=== PATIENT | male | born 1980 | race Caucasian/White ===

== ENCOUNTER → 2018-04-19 | Outpatient (CLI) | payer BC, OTHER ==
[2018-04-19 14:07] LABS: BASO # 0.1 10^3/uL (0.0-0.2); BASO % 0.8 % (0.0-1.0); EOS # 0.1 10^3/uL (0.0-0.50); EOS % 0.9 % (0.0-3.0); HEMATOCRIT 41.8 % (42.0-52.0); HEMOGLOBIN 14.3 g/dl (13.5-17.5); IMMATURE GRANULOCYTE % 0.3 % (0-3.0); LYMPH # 1.9 10^3/uL (1.5-4.5); LYMPH % 25.7 % (24.0-44.0); MEAN CORPUSCULAR HEMOGLOBIN 28.5 pg (27.0-33.0); MEAN CORPUSCULAR HGB CONC 34.2 g/dl (32.0-36.5); MEAN CORPUSCULAR VOLUME 83.4 fl (80.0-96.0); MONO # 0.6 10^3/uL (0.0-0.8); MONO % 8.4 % (0.0-5.0); NEUTROPHILS # 4.7 10^3/uL (1.8-7.7); NEUTROPHILS % 63.9 % (36.0-66.0); PLATELET COUNT, AUTOMATED 325 10^3/uL (150-450); RED BLOOD COUNT 5.01 10^6/uL (4.30-6.10); RED CELL DISTRIBUTION WIDTH 13.7 % (11.5-14.5); WHITE BLOOD COUNT 7.4 10^3/uL (4.0-10.0)
[2018-04-19 14:12] LABS: INR 0.98; PROTHROMBIN TIME 13.1 SECONDS (12.1-14.4)
[2018-04-19 14:13] LABS: PARTIAL THROMBOPLASTIN TIME 30.5 SECONDS (25.4-37.6)
[2018-04-19 14:48] LABS: ALBUMIN 3.9 GM/DL (3.2-5.2); ALBUMIN/GLOBULIN RATIO 0.98 (1.00-1.93); ALKALINE PHOSPHATASE 73 U/L (45-117); ALPHA FETOPROTEIN TUMOR QUANT < 1.3 NG/ML (<8.1); ALT/SGPT 34 U/L (12-78); ANION GAP 12 MEQ/L (8-16); AST/SGOT 18 U/L (7-37); BILIRUBIN,TOTAL 0.4 MG/DL (0.2-1.0); BLOOD UREA NITROGEN 15 MG/DL (7-18); CALCIUM LEVEL 9.5 MG/DL (8.5-10.1); CARBON DIOXIDE LEVEL 25 MEQ/L (21-32); CHLORIDE LEVEL 103 MEQ/L (98-107); CREATININE FOR GFR 0.97 MG/DL (0.70-1.30); GLOMERULAR FILTRATION RATE > 60.0 (>60); GLUCOSE, FASTING 91 MG/DL (70-100); POTASSIUM SERUM 4.1 MEQ/L (3.5-5.1); SODIUM LEVEL 140 MEQ/L (136-145); TOTAL PROTEIN 7.9 GM/DL (6.4-8.2)
[2018-04-19 15:05] LABS: ERYTHROCYTE SEDIMENTATION RATE 15 mm/hr (0-15)
[2018-04-22 00:07] LABS: QuantiFERON-TB Gold Plus Negative (Negative)
[2018-04-25 08:06] LABS: ANCA-ATYPICAL <1:20 titer (Neg:<1:20); ANTI DOUBLE STRAND-DNA AB 1 IU/mL (0-9); ANTINUCLEAR ANTIBODIES DIRECT Negative (Negative); ASPERGILLUS FLAVUS ABY Negative (Neg:<1:1); ASPERGILLUS FUMIGATUS ABY Negative (Neg:<1:1); ASPERGILLUS GALACTOMANNAN AG 0.03 Index (0.00-0.49); ASPERGILLUS NIGER ABY Negative (Neg:<1:1); BLASTOMYCES ANTIBODY LEVEL Negative (Neg:<1:1); COCCIDIOMYCOSIS ANTIBODY 1.2 IV (<=0.9); CRYPTOCOCCUS ANTIGEN SER Negative (Negative); CYTOPLASMIC NEUTROP AB ANCA-C <1:20 titer (Neg:<1:20); HCG SERUM TUMOR MARKER QUANT < 1 mIU/mL (0-3); PERINUCLEAR AB ANCA-P <1:20 titer (Neg:<1:20); RNP ANTIBODIES <0.2 AI (0.0-0.9); SJOGREN'S ANTI SS-A <0.2 AI (0.0-0.9); SJOGREN'S ANTI SS-B <0.2 AI (0.0-0.9); SMITH ANTIBODIES <0.2 AI (0.0-0.9)
== END ==
LOC: M SMT 09:57
DX: R91.8 Other nonspecific abnormal finding of lung field (principal)
CPT/HCPCS: 80053

== ENCOUNTER → 2018-04-23 | Outpatient (CLI) | payer BC, OTHER | LOC: M RAD 07:54 | DX: R91.8 Other nonspecific abnormal finding of lung field (principal); N20.0 Calculus of kidney | CPT/HCPCS: 71250 ==

== ENCOUNTER 2018-05-02 06:05 | Day surgery (SDC) | payer BC, OTHER ==
[~2018-05-02 06:05] MED LIST: LR 1,000 ML IV
[2018-05-02] MEDS ORDERED: dexameTHASONE 4 MG/ML 1ML VIAL (J1100) As Ordered ×2 (07:05→07:10)
[2018-05-02] MEDS ORDERED: LIDOCAINE 2% INJ 100 MG/5 ML SDV (FOR ANES.) As Ordered (07:05)
[2018-05-02] MEDS ORDERED: PROPOFOL 200 MG/20 ML VIAL As Ordered (07:05)
[2018-05-02] MEDS ORDERED: ROCURONIUM BROMIDE 50 MG/5 ML VIAL As Ordered (07:05)
[2018-05-02] MEDS ORDERED: ONDANSETRON 4MG/2ML VIAL (J2405) As Ordered (07:05)
[2018-05-02] MEDS ORDERED: MIDAZOLAM INJ 2 MG/2 ML VIAL (J2250) As Ordered (07:06)
[2018-05-02] MEDS ORDERED: fentaNYL 250 MCG/5 ML INJECTION (J3010) As Ordered (07:06)
[2018-05-02] MEDS: CETACAINE SPRAY 5GM As Ordered (07:43)
[2018-05-02] MEDS ORDERED: SUGAMMADEX SODIUM 500 MG/5 ML VIAL (BRIDION) As Ordered (07:57)
[2018-05-02] MEDS ORDERED: PHENYLephrine HCL 500 MCG/5 ML (100MCG/ML) SYRINGE (J2370) As Ordered (08:28)
[2018-05-02] MEDS ORDERED: ePHEDrine SULFATE 25 MG/5 ML(5MG/ML) SYRINGE As Ordered (08:40)
[2018-05-02] MEDS: LIDOCAINE VISCOUS 2% SOLN 15ML UDC As Ordered (09:17)
[2018-05-02] MEDS: EPINEPHrine 1MG/10ML SYRINGE 1.5IN As Ordered (09:17)
[2018-05-02] MEDS: THROMBIN SOLN 5,000 UNITS VIAL As Ordered (09:17)
[2018-05-02] MEDS: LIDOCAINE 1% MDV 20ML VIAL As Ordered (09:17)
[2018-05-02] MEDS ORDERED: LR 1,000 ML IV (09:45)
[2018-05-02] MEDS ORDERED: ONDANSETRON 4MG/2ML VIAL (J2405) IV (09:45)
[2018-05-02] MEDS ORDERED: fentaNYL 100 MCG/2 ML INJECTION (J3010) IV (09:45)
[2018-05-02] MEDS ORDERED: PERCOCET 5MG/325MG TAB As Ordered (10:53)
[2018-05-02] MEDS: PERCOCET 5MG/325MG TAB PO (10:55)
[2018-05-02 13:43] LABS: APPEARANCE HAZY (CLEAR); COLOR PINK (COLORLESS); SOURCE LEFT LOWER LOBE
[2018-05-02 13:44] LABS: BAL DIFF IF INDICATED? NO (NO); BAL WBC 14 CELLS/uL (0-10); DILUTION FACTOR 1; WBC BAL COUNTED 13
[2018-05-02 13:45] LABS: APPEARANCE HAZY (CLEAR); BAL DIFF IF INDICATED? NO (NO); BAL WBC 6 CELLS/uL (0-10); COLOR PINK (COLORLESS); DILUTION FACTOR 1; SOURCE LEFT UPPER LOBE; WBC BAL COUNTED 5
== END 2018-05-02 11:45 | disposition home or self-care (01) ==
LOC: M SDC 06:05
DX: R94.31 Abnormal electrocardiogram [ECG] [EKG] (principal); R59.0 Localized enlarged lymph nodes; I10 Essential (primary) hypertension; K21.9 Gastro-esophageal reflux disease without esophagitis
CPT/HCPCS: 31623

== ENCOUNTER → 2018-06-25 | Outpatient (CLI) | payer BC, OTHER ==
[~2018-06-25] MED LIST changes: +BYST5TAB2 PO; +DUPI300I SC; +DYAZ37.5 PO; -LR 1,000 ML IV; +OMEP40CA2 PO; +PROAAER10 INH
== END ==
LOC: M LAB 14:54
PROVIDERS: ATTEND Internal Medicine Pulmonary Disease
DX: B39.2 Pulmonary histoplasmosis capsulati, unspecified (principal)
CPT/HCPCS: 36415; G0480

== ENCOUNTER → 2018-06-25 | Outpatient (CLI) | payer BC, OTHER ==
--- NOTE | 2018-06-26 15:41 | REP ---
Clinical: Abnormal lung findings. Technique: Axial noncontrast images from the thoracic inlet to the upper abdomen with coronal and sagittal re-formations. Comparison: 04/23/2018, 04/11/2018, 08/31/2014. Findings: Scattered bilateral noncalcified rounded nodules measure up to approximately 6.4 mm and are either stable or mildly regressed when compared to 04/23/2018 and 04/11/2018. As example, the area of nodular opacity with underlying 13 mm dominant nodule in the periphery of the left lower lobe has considerably improved with the dominant nodule now measuring 5 mm and the peripheral irregular nodular opacity visually decreased. A single area of noncalcified nodular density along the right major fissure now measures approximately 10 mm and previously measured 5 mm (image 63). No significant consolidation. No effusion or pneumothorax. Tracheobronchial tree is patent. Mild hilar adenopathy cannot be excluded due to the lack of contrast enhancement. The mediastinum including thoracic aorta, pulmonary vasculature and heart/pericardium appear normal. No axillary adenopathy. Surrounding musculoskeletal structures are intact. Upper abdomen demonstrates normal bilateral adrenal glands. Impression: 1. Predominance of noncalcified nodules throughout the bilateral lung [place] and area of irregular small opacity in the periphery of the left lower lobe have either decreased or remains stable. 2. Only a single area of noncalcified density along the right major fissure appears to have increased from 5 mm to 10 mm. Short-term follow-up examination may be warranted if no specific diagnosis has been made. Electronically Signed by Kory De La Rosa MD 06/26/2018 03:32 P
== END ==
LOC: M RAD 14:27
PROVIDERS: ATTEND Internal Medicine Pulmonary Disease
DX: R91.8 Other nonspecific abnormal finding of lung field (principal)

== ENCOUNTER → 2018-07-19 | Outpatient (REF) | payer OTHER ==
[2018-07-19 18:42] LABS: ALBUMIN 4.1 GM/DL (3.2-5.2); BILIRUBIN,DIRECT 0.1 MG/DL (0.0-0.2); BILIRUBIN,TOTAL 0.4 MG/DL (0.2-1.0); TOTAL PROTEIN 7.4 GM/DL (6.4-8.2)
== END ==
LOC: M LAB REF 17:02
PROVIDERS: ATTEND Internal Medicine Pulmonary Disease
DX: B39.2 Pulmonary histoplasmosis capsulati, unspecified (principal)

== ENCOUNTER → 2018-11-06 | Outpatient (CLI) | payer OTHER ==
[2018-11-06 17:42] LABS: CPK CREATINE PHOSPHOKINASE 110 U/L (39-308); TROPONIN I < 0.02 NG/ML (< 0.10)
[2018-11-14 14:19] LABS: ANA (HEP2) Negative (.); ANTI DS-DNA AB <1:10 titer (.)
== END ==
LOC: M SMT 15:44
PROVIDERS: ATTEND Internal Medicine Pulmonary Disease
DX: R07.1 Chest pain on breathing (principal)

== ENCOUNTER → 2019-12-12 | Outpatient (CLI) | payer BC, OTHER ==
[~2019-12-12] MED LIST changes: -OMEP40CA2 PO; +OMEP40CA97 PO
--- NOTE | 2019-12-12 14:24 | REP ---
CT CHEST WITHOUT IV CONTRAST: CT chest performed without IV contrast. Sagittal and coronal reconstruction images are performed. Comparison made with prior CT chest, [facility], 11/22/2018 and [facility], 06/25/2018. Multiple subcentimeter nodules are again seen bilaterally diffusely. These appear essentially unchanged when compared to the prior CT of 11/22/2018. Compared to the 06/25/2018 exam, many have decreased in size in the right lung. A couple have increased in size and others have remained stable. No new nodule is seen. No consolidating infiltrate is seen. No significant mediastinal or axillary adenopathy is seen. Heart is normal in size. There is no pleural or pericardial effusion. There is no thoracic aortic aneurysm. IMPRESSION: Multiple subcentimeter nodules throughout both lungs have remained essentially stable compared to prior CT of 11/22/2018. Comparing to 06/25/2018 exam, many of the nodules in the right lung have decreased in size, a couple have increased in size. Otherwise, the findings have remained stable. Electronically Signed by Brandon Martinez MD 12/12/2019 03:20 P
== END ==
LOC: M RAD 10:59
PROVIDERS: ATTEND Internal Medicine Pulmonary Disease
DX: B39.2 Pulmonary histoplasmosis capsulati, unspecified (principal); R91.8 Other nonspecific abnormal finding of lung field